=== PATIENT | female | born 1935 | race Caucasian/White ===

== ENCOUNTER 2016-09-05 21:50 | Inpatient (IN) | payer MEDICARE ==
[~2016-09-05] VITALS: Ht 157.5 cm; Wt 69.9 kg
[~2016-09-05 21:50] MED LIST: ACET325T9 PO; ASPI325T4 PO; ATOR40TA PO; CHOL10003 PO; COLE1TAB2 PO; CYAN10005 PO; DIPH25CA3 PO; DONE10TA34 PO; ESCI20TA10 PO; ESTR2TAB PO; GABA-586 PO; GLYB5TAB PO; HYDR-2666 PO; HYDR-2678 PO; LISI-334 PO; LISI40TA PO; MAGN30TA2 PO; MAGN400T22 PO; MEMA10TA PO; METF10002 PO; OMEG10006 PO; OMEP20CA5 PO; OXYB5TAB33 PO; aspirin PO; lexapro PO; lipitor PO; metformin PO; omega 3 fish oil PO; tylenol; vitamin B12; vitamin D3 PO
[2016-09-05] MEDS ORDERED: ONDANSETRON PF 4 MG/2 ML VIAL. IV ONE (22:45)
[2016-09-05] MEDS ORDERED: IV NORMAL SALINE 1000ML BAG 1,000 ML IV SCH (22:45)
--- NOTE | 2016-09-05 22:49 | ED.ADGEN ---
Past Medical History Past Medical History: CVA, Dementia, Depression, Diabetes-Type II, Hypertension , [place] Past Surgical History: Cholecystectomy, Coronary Bypass Surgery, Hysterectomy, Knee Replacement, Pacemaker, Other Additional Past Surgical Histo: bilateral lumpectomy Alcohol Use: None Drug Use: None Adult General Chief Complaint Chief Complaint: Neck Pain HPI HPI Patient is a 81 year old woman, history of hypertension, CVA, type 2 diabetes mellitus, dementia, dysphagia with aspiration, who presents emergency department with multiple complaints. Patient states for the past several days she's been experiencing body aches, headache, neck pain, cough productive of green white sputum, shortness of breath, generalized weakness, abdominal pain, and diarrhea. Patient experiences incontinence of urine and stool at baseline. Has not expressed any focal weakness, any injuries. She did receive her flu vaccination this year. No recent medication changes, patient lives with her family, has been compliant all medications. Patient states that she is willing to be evaluated this time, is concerned that she may have the flu, but does not want to stay. Describes the headache is located in the front of her head at this time, denies any vision changes, is complaining of nausea, and generalized malaise and weakness. No dysuria. No vomiting. Patient noted to be mildly hypoxic per EMS, oxygen saturation of 88% on arrival, placed on 2 L nasal cannula, saturation now 95%. Patient does not use oxygen at baseline. Patient's family voices concern that she may have experienced some aspiration as well, as this is been happening intermittently, the patient denies any specific Review of Systems Review of Systems Constitutional: Denies fever or chills. Generalized malaise and weakness, body aches. Eyes: Denies change in visual acuity. [] HENT: Denies nasal congestion, complaining of sore throat for the past several days. Respiratory: Cough productive of green-yellow sputum, shortness of breath. Cardiovascular: Denies chest pain or edema. [] GI: Suprapubic abdominal pain, nausea, no vomiting, bloody stools, experiencing multiple episodes of loose brown stool. : Denies dysuria. [] Musculoskeletal: Neck pain and back pain. Integument: Denies rash. [] Neurologic: Denies headache, focal weakness or sensory changes. [] Endocrine: Denies polyuria or polydipsia. [] Lymphatic: Denies swollen glands. [] Psychiatric: Denies depression or anxiety. [] Current Medications Current Medications Current Medications Medications (Trade) Dose Ordered Sig/[place] Start Time Stop Time Status Last Admin Dose Admin Diazepam (Valium) 2 mg 1X ONCE 09/06/16 00:00 09/06/16 00:01 DC 09/06/16 00:31 2 MG Fentanyl Citrate 25 mcg 25 mcg PRN Q15MIN PRN 09/05/16 22:45 09/06/16 22:44 09/06/16 01:14 25 MCG Ondansetron HCl (Zofran) 4 mg 1X ONCE 09/05/16 22:45 09/05/16 22:46 DC 09/05/16 22:51 4 MG Sodium Chloride (Iv Sodium Chloride 0.9% 1000ml Bag) 1,000 ml @ 100 mls/hr Q10H 09/05/16 22:45 09/06/16 08:44 09/05/16 22:50 100 MLS/HR Allergies Allergies Allergies Coded Allergies Type Severity Reaction Last Updated Verified Penicillins Allergy Severe SYNCOPE, FINGERNAILS TURN BLACK 01/06/14 Yes Physical Exam Physical Exam Constitutional: Well developed, well nourished, no acute distress, non-toxic appearance. [] Nasal cannula in place. HENT: Normocephalic, atraumatic, bilateral external ears normal, oropharynx moist, no oral exudates, nose normal. [] Eyes: PERRLA, EOMI, conjunctiva normal, no discharge. [] Neck: Normal range of motion, no tenderness, supple, no stridor. [] Cardiovascular:Heart rate regular rhythm, no murmur, S1, S2, no rubs or gallops , soft heart sounds. [] Lungs & Thorax: Diminished breath sounds at bases bilaterally, no rhonchi or rales identified. No wheezing. [] Abdomen: Bowel sounds normal, soft, tenderness to palpation in the suprapubic region, no rebound, rigidity, no guarding,, no masses, no pulsatile masses. [] Skin: Warm, dry, no erythema, no rash. [] Back: Patient has tenderness to palpation throughout the neck, back, midline and paraspinal, no step-offs or deformities identified. Patient plain to pain with any motion, radiating from neck down to her shoulders, and into her back. No external signs of trauma. Extremities: No tenderness, no cyanosis, no clubbing, ROM intact, no edema. [] Neurologic: Alert and oriented X 3, normal motor function, normal sensory function, no focal deficits noted. [] Psychologic: Affect normal, judgement normal, mood normal. [] Current Patient Data Vital Signs Vital Signs Date Time Temp Pulse Resp B/P Pulse Ox O2 Delivery O2 Flow Rate FiO2 09/06/16 00:04 111 16 142/63 95 Room Air 09/05/16 23:34 2 09/05/16 22:22 97.7 97.7 Lab Values Laboratory Tests Test 09/05/16 22:40 09/05/16 22:45 09/05/16 23:15 Influenza Type A Antigen Negative (NEGATIVE) Influenza Type B Antigen Negative (NEGATIVE) Urine Collection Type U cath Urine Color Yellow Urine Clarity Clear Urine pH 5.5 Urine Specific [place] >=1.030 Urine Protein 30mg/dL (NEG-TRACE) Urine Glucose (UA) Negativemg/dL (NEG) Urine Ketones (Stick) Tracemg/dL (NEG) Urine Blood Negative (NEG) Urine Nitrite Negative (NEG) Urine Bilirubin Negative (NEG) Urine Urobilinogen Dipstick 0.2mg/dL (0.2 mg/dL) Urine Leukocyte Esterase Negative (NEG) Urine RBC Occ/HPF (0-2) Urine WBC Occ/HPF (0-4) Urine Squamous Epithelial Cells Occ/LPF Urine Amorphous Sediment Present/HPF Urine Bacteria 0/HPF (0-FEW) Urine Hyaline Casts Few/HPF Urine Mucus Slight/LPF White Blood Count 11.6x10^3/uL (4.0-11.0) H Red Blood Count 4.12x10^6/uL (3.50-5.40) Hemoglobin 11.7g/dL (12.0-15.5) L Hematocrit 36.6% (36.0-47.0) Mean Corpuscular Volume 89fL (79-100) Mean Corpuscular Hemoglobin 29pg (25-35) Mean Corpuscular Hemoglobin Concent 32g/dL (31-37) Red Cell Distribution Width 14.4% (11.5-14.5) Platelet Count 282x10^3/uL (140-400) Neutrophils (%) (Auto) 82% (31-73) H Lymphocytes (%) (Auto) 11% (24-48) L Monocytes (%) (Auto) 6% (0-9) Eosinophils (%) (Auto) 0% (0-3) Basophils (%) (Auto) 1% (0-3) Neutrophils # (Auto) 9.5x10^3uL (1.8-7.7) H Lymphocytes # (Auto) 1.3x10^3/uL (1.0-4.8) Monocytes # (Auto) 0.7x10^3/uL (0.0-1.1) Eosinophils # (Auto) 0.0x10^3/uL (0.0-0.7) Basophils # (Auto) 0.1x10^3/uL (0.0-0.2) Sodium Level 143mmol/L (136-145) Potassium Level 4.0mmol/L (3.5-5.1) Chloride Level 106mmol/L (98-107) Carbon Dioxide Level 25mmol/L (21-32) Anion Gap 12 (6-14) Blood Urea Nitrogen 23mg/dL (7-20) H Creatinine 1.0mg/dL (0.6-1.0) Estimated GFR (Cockcroft-Gault) 53.3 BUN/Creatinine Ratio 23 (6-20) H Glucose Level 132mg/dL (70-99) H Lactic Acid Level 1.5mmol/L (0.4-2.0) Calcium Level 6.9mg/dL (8.5-10.1) L Total Bilirubin 0.3mg/dL (0.2-1.0) Aspartate Amino Transferase (AST) 22U/L (15-37) Alanine Aminotransferase (ALT) 14U/L (14-59) Alkaline Phosphatase 104U/L (46-116) Troponin I Quantitative 0.020ng/mL (0.000-0.055) Total Protein 7.3g/dL (6.4-8.2) Albumin 2.6g/dL (3.4-5.0) L Albumin/Globulin Ratio 0.6 (1.0-1.7) L Laboratory Tests 09/05/16 23:15 Laboratory Tests 09/05/16 23:15 EKG EKG EC: Sinus rhythm, heart rate 93 beats/minute, upright axis, QTC of 4:30, UT 186, QRS of 80, mild and artifact noted, low limb lead voltage noted, no ST elevations or depressions, abnormal ECG, does not meet STEMI criteria. As interpreted by me. [] Radiology/Procedures Radiology/Procedures Chest x-ray: One view: Cardiac silhouette with straightening left heart border, patient with a CD pacemaker in place, mild increased interstitial markings, no discrete infiltrates or effusions, no pneumothorax, no soft tissue or bony abnormalities identified. As interpreted by me. Course & Med Decision Making Course & Med Decision Making Pertinent Labs and Imaging studies reviewed. (See chart for details) Patient with tenderness all patient throughout her neck and back, no nuchal rigidity, though she is tender, states the headache does move of her neck into her head in this region. Afebrile, so sought obtained was negative, although patient's constellation of symptoms are most consistent with a viral etiology. CT of the head obtained due to patient's complaint of headache, which was unremarkable. Patient had a positive jolt accentuation test. Tachycardic as stated, 1 teens to 120s, although when she is agitated tends to go up. Although I believe that this is more consistent with a viral etiology, I did discuss with the patient and family at bedside the fact that she does have headache, with mild leukocytosis, and neck pain, that obtaining a lumbar puncture would be an appropriate diagnostic procedure. Patient states that she's had pain such as this previously, declined a lumbar puncture. She was weaned off oxygen in the emergency department without issue, oxygen saturation in the mid 90s on room air. As stated, I believe the patient's presentation is more consistent with a viral etiology but due to the headache, and neck pain, will cover with broad-spectrum antibiotics time, continue to monitor. Additionally, patient is now informed me that her recently , and she has been struggling, I believe this may be contributing to the symptoms there could be a psychiatric component along with any physiologic etiology. Discussion at bedside with patient and family, patient is DNR/DNI. I did discuss above with Dr. Lemons, her primary care provider, he is agreeable with plan as stated, and also with the concerns that this may be influenced by the patient's recent loss of her , patient was accepted to his service as a full admission to the medical telemetry floor for continued monitoring, symptom management, with plan as above. Bridge orders entered as stated. Dragon Disclaimer Dragon Disclaimer This electronic medical record was generated, in whole or in part, using a voice recognition dictation system. Departure Impression: Primary Impression: Weakness Additional Impressions: Body aches Tachycardia Headache Disposition: ADMITTED INPATIENT Admitting Physician: Yoandy Lemons Condition: IMPROVED Problem Qualifiers WILMA ORTIZ DO Sep 05, 2016 22:49
[2016-09-05] MEDS: FENTANYL PF 100 MCG/2 ML VIAL. IV PRN ×2 (22:52→23:41)
[2016-09-05 22:55] LABS: BILIRUBIN,URINE NEGATIVE (NEG); GLUCOSE,URINE NEGATIVE (NEG); NITRITE,URINE NEGATIVE (NEG); PH,URINE 5.5; PROTEIN,URINE 30 mg/dL (NEG-TRACE); UROBILINOGEN,URINE 0.2 mg/dL (0.2 mg/dL)
[2016-09-05 23:04] LABS: BACTERIA,URINE 0 /HPF (0-FEW); RBC,URINE OCC /HPF (0-2); WBC,URINE OCC /HPF (0-4)
[2016-09-05 23:05] LABS: SQUAMOUS EPITHELIAL CELL,UR OCC /LPF
[2016-09-05 23:22] LABS: OBC FLU VALID
[2016-09-05 23:24] LABS: BASO # 0.1 x10^3/uL (0.0-0.2); BASO % 1 % (0-3); EOS % 0 % (0-3); HEMATOCRIT 36.6 % (36.0-47.0); HEMOGLOBIN 11.7 g/dL (12.0-15.5); LYMPH # 1.3 x10^3/uL (1.0-4.8); LYMPH % 11 % (24-48); MEAN CORPUSCULAR HEMOGLOBIN 29 pg (25-35); MEAN CORPUSCULAR HGB CONC 32 g/dL (31-37); MEAN CORPUSCULAR VOLUME 89 fL (79-100); MONO % 6 % (0-9); NEUT % 82 % (31-73); PLATELET COUNT 282 x10^3/uL (140-400); RED BLOOD COUNT 4.12 x10^6/uL (3.50-5.40); RED CELL DISTRIBUTION WIDTH 14.4 % (11.5-14.5); WHITE BLOOD COUNT 11.6 x10^3/uL (4.0-11.0)
[2016-09-05 23:38] LABS: CALCIUM 6.9 mg/dL (8.5-10.1); GFR 53.3
[2016-09-05 23:44] LABS: ALBUMIN 2.6 g/dL (3.4-5.0); ALBUMIN/GLOBULIN RATIO 0.6 (1.0-1.7); TOTAL BILIRUBIN 0.3 mg/dL (0.2-1.0); TOTAL PROTEIN 7.3 g/dL (6.4-8.2)
[2016-09-06] VITALS (7 sets, daily range): BP systolic 91–140; BP diastolic 30–67
[2016-09-06] MEDS ORDERED: DIAZEPAM 10 MG/2 ML DISP.SYRIN. IV ONE
--- NOTE | 2016-09-06 00:10 | RAD ---
PROCEDURE CT head without contrast dated 09/05/2016. HISTORY Severe headache today. Flu-like symptoms. TECHNIQUE Contiguous axial imaging of the head was performed from skull base to vertex. No contrast administered.Exposure: One or more of the following individualized dose reduction techniques were utilized for this exam: 1. Automated exposure control. 2. Adjustment of the mA and/or kV according to patient size. 3. Use of iterative reconstruction technique. COMPARISON 10/08/2014. FINDINGS Ventricles and sulci are moderately prominent for age, stable from prior study. No midline shift or mass effect. Moderate patchy low density in the deep/subcortical periventricular white matter, unchanged. No hemorrhage or extra-axial collection. Posterior fossa and brainstem unremarkable. Visualized paranasal sinuses and mastoid air cells are clear. No acute calvarial abnormality. IMPRESSION - No evidence of acute intracranial hemorrhage or mass. - Moderate chronic small vessel ischemic changes and atrophy, similar to prior study. Electronically signed by: Carroll Harding (Sep 06, 2016 00:09:15)
[2016-09-06] MEDS ORDERED: ONDANSETRON PF 4 MG/2 ML VIAL. IV PRN ×2 (01:00→07:15)
[2016-09-06] MEDS ORDERED: ACETAMINOPHEN 325 MG TABLET. PO PRN ×2 (01:00→07:15)
[2016-09-06] MEDS ORDERED: CEFTRIAXONE SODIUM 2 GM in IV NORMAL SALINE 100ML 100 ML IV SCH (01:00)
[2016-09-06] MEDS: FENTANYL PF 100 MCG/2 ML VIAL. IV PRN ×3 (01:14→05:46)
[2016-09-06] MEDS ORDERED: VANCOMYCIN PER PHARMACY MC PRN (02:00)
[2016-09-06] MEDS ORDERED: VANCOMYCIN 1.75 GM in IV NORMAL SALINE 500ML BAG 500 ML IV ONE (02:00)
--- NOTE | 2016-09-06 06:39 | EKG ---
[facility] [address] [place] [address] Test Date: 2016-09-05 Test Time: 22:00:07 Pat Name: SHONNA CHAMPAGNE Department: Room: Gender: F Load Planner: : 1935 Requested By: WILMA ORTIZ Order Number: [id number] Reading MD: Measurements Intervals Cut Off Rate: 93 P: 90 TX: 186 QRS: 63 QRSD: 80 T: 42 QT: 344 QTc: 430 Interpretive Statements SINUS RHYTHM LOW LIMB LEAD VOLTAGE RI6.01 Unconfirmed report No previous ECG available for comparison
[2016-09-06] MEDS ORDERED: BUSP5TAB PO (06:50)
[2016-09-06] MEDS ORDERED: ASCO500T2 PO (06:50)
[2016-09-06] MEDS ORDERED: VENL37.57 PO (06:50)
[2016-09-06] MEDS ORDERED: METF100010 PO (06:50)
[2016-09-06] MEDS ORDERED: ALPR0.25 PO (06:50)
[2016-09-06] MEDS ORDERED: ALPRAZOLAM 0.25 MG TABLET PO PRN (07:15)
[2016-09-06] MEDS ORDERED: HYDROCODONE/APAP 5/325MG TABLET. PO PRN (07:15)
[2016-09-06] MEDS ORDERED: busPIRone 5 MG TABLET. PO PRN (07:15)
[2016-09-06] MEDS ORDERED: AZITHROMYCIN 250 MG TABLET PO ONE (07:15)
--- NOTE | 2016-09-06 07:25 | RAD ---
Portable chest, 09/05/2016: History: Cough, hypoxia Comparison is made to a study from 10/12/2014. A left-sided transvenous pacemaker remains in place with 2 leads extending into the right heart. There are surgical clips projected over the left hilar region. The heart size is normal. There is calcific plaquing of the aorta. The pulmonary vascularity is normal. No pulmonary infiltrates are seen. There is no evidence of pleural fluid. IMPRESSION: No acute cardiopulmonary abnormality is detected.
[2016-09-06] MEDS ORDERED: GUAIFENESIN DM 200MG/20MG 10 ML SYRUP. PO PRN (07:45)
[2016-09-06] MEDS ORDERED: ALBUTEROL SULFATE 2.5 MG/3 ML NEBU. NEB PRN (07:45)
--- NOTE | 2016-09-06 07:48 | PDOC ---
Provider Note Provider Note See admission H&P dictation #[id number] Impression: 1. Viral syndrome with dehydration: 2. Myalgias secondary to the above: 3. Dehydration: 4. Bronchitis: 5. Diabetes mellitus type 2: 6. Hypertension: 7. Dementia: 8. Grief secondary to the loss of her a couple of weeks ago: 9. Anxiety: NADJA GARZA MD Sep 06, 2016 07:48
[2016-09-06] MEDS: HYDROCODONE/APAP 5/325MG TABLET. PO PRN (09:07)
[2016-09-06] MEDS: PANTOPRAZOLE 40 MG TABLET. PO SCH (09:07)
[2016-09-06] MEDS: IBUPROFEN 400 MG TABLET. PO SCH ×3 (09:07→20:45)
[2016-09-06] MEDS: LISINOPRIL 20 MG TABLET PO SCH (09:08)
[2016-09-06] MEDS: ASPIRIN 325 MG TABLET PO SCH (09:08)
[2016-09-06] MEDS: DONEPEZIL HCL 10 MG TABLET. PO SCH (09:08)
[2016-09-06] MEDS: METFORMIN XR 500 MG TAB.ER.24H PO SCH ×2 (09:08→20:45)
[2016-09-06] MEDS: MEMANTINE 5 MG TABLET. PO SCH (09:09)
--- NOTE | 2016-09-06 09:48 | RAD ---
Portable abdomen, 09/06/2016: History: Abdominal pain Supine views of the abdomen were obtained. Gas is present in large and small bowel without evidence of significant bowel distention. There is no evidence of organomegaly. Surgical clips are present bilaterally. Moderate scattered arterial calcifications are present. Moderate degenerative change is present in the lumbar spine. IMPRESSION: No acute abdominal abnormality is detected.
[2016-09-06] MEDS: IV NORMAL SALINE 1000ML BAG 1,000 ML IV SCH ×2 (12:00→21:30)
[2016-09-06] MEDS: ALPRAZOLAM 0.25 MG TABLET PO SCH (15:01)
[2016-09-07] MEDS ORDERED: VANCOMYCIN 1 GM in IV NORMAL SALINE 250ML 250 ML IV SCH (02:00)
[2016-09-07 03:00] VITALS: BP 110/60
[2016-09-07] MEDS: IV NORMAL SALINE 1000ML BAG 1,000 ML IV SCH ×2 (03:15→17:28)
[2016-09-07 04:52] LABS: BASO # 0.1 x10^3/uL (0.0-0.2); BASO % 1 % (0-3); EOS % 0 % (0-3); HEMATOCRIT 30.5 % (36.0-47.0); HEMOGLOBIN 10.1 g/dL (12.0-15.5); LYMPH # 2.4 x10^3/uL (1.0-4.8); LYMPH % 24 % (24-48); MEAN CORPUSCULAR HEMOGLOBIN 29 pg (25-35); MEAN CORPUSCULAR HGB CONC 33 g/dL (31-37); MEAN CORPUSCULAR VOLUME 89 fL (79-100); MONO % 11 % (0-9); NEUT % 64 % (31-73); PLATELET COUNT 232 x10^3/uL (140-400); RED BLOOD COUNT 3.45 x10^6/uL (3.50-5.40); RED CELL DISTRIBUTION WIDTH 14.3 % (11.5-14.5)
[2016-09-07 05:28] LABS: CALCIUM 6.2 mg/dL (8.5-10.1); CREATININE 0.9 mg/dL (0.6-1.0); GFR 60.2; POTASSIUM 3.3 mmol/L (3.5-5.1)
[2016-09-07 07:00] VITALS: BP 121/46
[2016-09-07] MEDS: LISINOPRIL 20 MG TABLET PO SCH (09:00)
[2016-09-07] MEDS: PANTOPRAZOLE 40 MG TABLET. PO SCH (09:00)
[2016-09-07] MEDS: AZITHROMYCIN 250 MG TABLET PO SCH (09:00)
[2016-09-07] MEDS: IBUPROFEN 400 MG TABLET. PO SCH ×3 (09:01→20:37)
[2016-09-07] MEDS: ASPIRIN 325 MG TABLET PO SCH (09:01)
[2016-09-07] MEDS: METFORMIN XR 500 MG TAB.ER.24H PO SCH ×2 (09:01→20:38)
[2016-09-07] MEDS: HYDROCODONE/APAP 5/325MG TABLET. PO PRN ×2 (09:01→17:27)
[2016-09-07] MEDS: DONEPEZIL HCL 10 MG TABLET. PO SCH (09:01)
[2016-09-07] MEDS: MEMANTINE 5 MG TABLET. PO SCH (09:01)
--- NOTE | 2016-09-07 09:17 | PDOC ---
SUBJECTIVE Subjective Pt confused this morning; believes that she has been in the hospital for 4 days. Still having diarrhea. Still feeling weak. Discussed possible discharge options; pt stated initially that she wanted to go home, but agrees that being in her home alone is not a very safe option. She says that her nephew has discussed helping take care of her and having her live with them. OBJECTIVE Vital Signs Vital Signs Date Time Temp Pulse Resp B/P Pulse Ox O2 Delivery O2 Flow Rate FiO2 09/07/16 09:01 97 Room Air 2.0 09/07/16 09:00 109 121/46 09/07/16 07:00 98.4 109 20 121/46 97 Room Air 98.4 09/07/16 03:00 98.1 81 17 110/60 98 Room Air 98.1 09/06/16 23:00 98.2 87 17 111/61 99 Room Air 98.2 09/06/16 20:00 Room Air 09/06/16 19:00 98.1 75 18 91/30 95 Room Air 98.1 09/06/16 15:00 98.0 72 18 117/51 95 Room Air 98.0 09/06/16 11:00 98.1 80 20 126/61 95 Room Air 98.1 09/06/16 10:07 Room Air 09/06/16 09:08 103 138/59 I & O Intake and Output 09/07/16 07:00 Intake Total 750 ml Balance 750 ml Intake Oral 750 ml # Voids 5 # Bowel Movements 2 PHYSICAL EXAM Physical Exam GEN: NAD, slightly confused, oriented to person and place, not time HEENT: MMM, EOMI, no scleral icterus/injection Cardiac: RRR, no M/R/G Lungs: CTAB, regular breathing rate and effort Abd: soft, non distended, NTTP Ext: no erythema/edema LE bilaterally Nuero: CN2-12 GI ASSESSMENT/PLAN Assessment/Plan Pt is a 81yo CF admitted for weakness 1)Weakness- likely chronic, progressive and recently worsened by the of her . Pt is not safe to live at home alone. PT/OT has been consulted, as has social media content specialist. 2)Diarrhea- C diff and stool cultures ordered 3)Bronchitis- pt started on Azithromycin. Had initial elevation in WBC that has resolved, afebrile. 4)Anemia- slightly worsened likely 2/2 dilution. Pt is not having any active bleeding. CTM 5)Hypernatremia- likely 2/2 dehydration. Pt receiving IVF 6)Hypokalemia- will replace and recheck tomorrow 7)HTN- pt's blood pressure is normo to hypotensive. Currently receiving Lisinopril 20mg. Already receiving AM dose, will hold for tomorrow. 8)Dementia- do not believe it is safe for pt to live alone. Pt continued on Namenda 5mg and Aricept 10mg 9)DM2- well controlled. HbA1C 03/15 was 5.1. Continue Metformin 10)Anxiety/Depression/Grief- pt continued on Xanax 11)Chronic pain- pt has Lortab available Problems: COMMENT Lab Laboratory Tests Test 09/06/16 11:58 09/06/16 16:56 09/06/16 21:03 09/07/16 04:15 Glucose (Fingerstick) 141mg/dL (70-99) 109mg/dL (70-99) 118mg/dL (70-99) White Blood Count 10.0x10^3/uL (4.0-11.0) Red Blood Count 3.45x10^6/uL (3.50-5.40) Hemoglobin 10.1g/dL (12.0-15.5) Hematocrit 30.5% (36.0-47.0) Mean Corpuscular Volume 89fL (79-100) Mean Corpuscular Hemoglobin 29pg (25-35) Mean Corpuscular Hemoglobin Concent 33g/dL (31-37) Red Cell Distribution Width 14.3% (11.5-14.5) Platelet Count 232x10^3/uL (140-400) Neutrophils (%) (Auto) 64% (31-73) Lymphocytes (%) (Auto) 24% (24-48) Monocytes (%) (Auto) 11% (0-9) Eosinophils (%) (Auto) 0% (0-3) Basophils (%) (Auto) 1% (0-3) Neutrophils # (Auto) 6.4x10^3uL (1.8-7.7) Lymphocytes # (Auto) 2.4x10^3/uL (1.0-4.8) Monocytes # (Auto) 1.1x10^3/uL (0.0-1.1) Eosinophils # (Auto) 0.0x10^3/uL (0.0-0.7) Basophils # (Auto) 0.1x10^3/uL (0.0-0.2) Sodium Level 147mmol/L (136-145) Potassium Level 3.3mmol/L (3.5-5.1) Chloride Level 111mmol/L (98-107) Carbon Dioxide Level 25mmol/L (21-32) Anion Gap 11 (6-14) Blood Urea Nitrogen 17mg/dL (7-20) Creatinine 0.9mg/dL (0.6-1.0) Estimated GFR (Cockcroft-Gault) 60.2 Glucose Level 82mg/dL (70-99) Calcium Level 6.2mg/dL (8.5-10.1) Test 09/07/16 07:59 Glucose (Fingerstick) 73mg/dL (70-99) SAHIL BYRNE MD Sep 07, 2016 09:17
[2016-09-07] MEDS ORDERED: POTASSIUM CHLORIDE 20 MEQ TABLET.ER. PO ONE (09:30)
[2016-09-07 11:00] VITALS: BP 122/42
[2016-09-07 15:00] VITALS: BP 127/35
[2016-09-07 19:00] VITALS: BP 108/45
[2016-09-07] MEDS: ALPRAZOLAM 0.25 MG TABLET PO SCH (20:37)
[2016-09-07 22:58] VITALS: BP 110/60
[2016-09-08 03:00] VITALS: BP 110/71
[2016-09-08] MEDS: IV NORMAL SALINE 1000ML BAG 1,000 ML IV SCH ×2 (04:42→09:15)
[2016-09-08] MEDS: HYDROCODONE/APAP 5/325MG TABLET. PO PRN (04:42)
[2016-09-08 07:00] VITALS: BP 143/58
[2016-09-08 07:02] LABS: BASO # 0.1 x10^3/uL (0.0-0.2); BASO % 1 % (0-3); EOS % 1 % (0-3); HEMATOCRIT 27.4 % (36.0-47.0); LYMPH # 1.8 x10^3/uL (1.0-4.8); LYMPH % 25 % (24-48); MEAN CORPUSCULAR HEMOGLOBIN 29 pg (25-35); MEAN CORPUSCULAR HGB CONC 33 g/dL (31-37); MEAN CORPUSCULAR VOLUME 88 fL (79-100); MONO % 8 % (0-9); NEUT % 66 % (31-73); PLATELET COUNT 226 x10^3/uL (140-400); RED CELL DISTRIBUTION WIDTH 14.7 % (11.5-14.5); WHITE BLOOD COUNT 7.4 x10^3/uL (4.0-11.0)
[2016-09-08 07:06] LABS: CREATININE 0.8 mg/dL (0.6-1.0); POTASSIUM 3.5 mmol/L (3.5-5.1)
[2016-09-08 07:13] LABS: CALCIUM 5.9 mg/dL (8.5-10.1)
[2016-09-08] MEDS: PANTOPRAZOLE 40 MG TABLET. PO SCH (07:43)
[2016-09-08] MEDS: DONEPEZIL HCL 10 MG TABLET. PO SCH (09:05)
[2016-09-08] MEDS: IBUPROFEN 400 MG TABLET. PO SCH ×3 (09:05→20:18)
[2016-09-08] MEDS: ASPIRIN 325 MG TABLET PO SCH (09:05)
[2016-09-08] MEDS: METFORMIN XR 500 MG TAB.ER.24H PO SCH ×2 (09:05→17:34)
[2016-09-08] MEDS: AZITHROMYCIN 250 MG TABLET PO SCH (09:05)
[2016-09-08] MEDS: MEMANTINE 5 MG TABLET. PO SCH (09:05)
[2016-09-08] MEDS ORDERED: LOPERAMIDE 2 MG CAPSULE PO PRN (09:30)
--- NOTE | 2016-09-08 09:33 | PDOC ---
SUBJECTIVE Subjective Pt is feeling much better this morning. She is more alert and oriented. She is still having diarrhea. Still feels weak. States that she is interested in going to SNF on discharge. OBJECTIVE Vital Signs Vital Signs Date Time Temp Pulse Resp B/P Pulse Ox O2 Delivery O2 Flow Rate FiO2 09/08/16 07:56 Room Air 09/08/16 07:00 97.7 84 18 143/58 95 Room Air 97.7 09/08/16 03:00 97.9 69 18 110/71 98 Room Air 97.9 09/07/16 22:58 97.7 67 18 110/60 99 Room Air 97.7 09/07/16 20:10 Room Air 09/07/16 19:00 97.7 18 18 108/45 95 Room Air 97.7 09/07/16 18:24 96 Room Air 2.0 09/07/16 17:27 96 Room Air 2.0 09/07/16 15:00 97.1 64 18 127/35 96 Room Air 97.1 09/07/16 11:00 98.8 78 20 122/42 94 Room Air 98.8 I & O Intake and Output 09/08/16 07:00 Intake Total 600 ml Output Total 200 ml Balance 400 ml Intake Oral 600 ml Output Urine Total 200 ml # Voids 4 # Bowel Movements 4 PHYSICAL EXAM Physical Exam GEN: NAD, AOx3, tremor present HEENT: MMM, EOMI, no scleral icterus/injection Cardiac: RRR, no M/R/G Lungs: CTAB, regular breathing rate and effort Abd: soft, non distended, NTTP Ext: no erythema/edema LE bilaterally Nuero: CN2-12 GI ASSESSMENT/PLAN Assessment/Plan Pt is a 81yo CF admitted for weakness 1)Weakness- chronic. Pt found to have hypocalcemia which could be contributing , and decreasing Hb. Pt states that she has had a 50 pound weight loss over the past year and has had recent GI workup. She is interested in SNF placement on discharge. PT/OT has been consulted, as has social work specialist. 2)Diarrhea- C diff and stool cultures ordered 3)Bronchitis- pt started on Azithromycin. Had initial elevation in WBC that has resolved, afebrile. 4)Anemia- continuing to decrease, currently 9. No active bleeding, contribution from dilution. FOBT pending. Will stop IVF hydration as pt is clinically improving. CTM 5)Hypernatremia- likely 2/2 dehydration, improving 6)Hypokalemia- resolved 7)HTN- pt was initially hypotensive so Lisinopril was held, will resume today. 8)Dementia- do not believe it is safe for pt to live alone. Pt continued on Namenda 5mg and Aricept 10mg 9)DM2- well controlled. HbA1C 03/15 was 5.1. Continue Metformin 10)Anxiety/Depression/Grief- pt continued on Xanax 11)Chronic pain- pt has Lortab available 12)Hypocalcemia- PTH, Mg, and Phos labs pending. Pt started on Calcium orally Problems: COMMENT Lab Laboratory Tests Test 09/07/16 11:39 09/07/16 16:51 09/07/16 20:38 09/08/16 06:30 Glucose (Fingerstick) 100mg/dL (70-99) 112mg/dL (70-99) 117mg/dL (70-99) White Blood Count 7.4x10^3/uL (4.0-11.0) Red Blood Count 3.10x10^6/uL (3.50-5.40) Hemoglobin 9.0g/dL (12.0-15.5) Hematocrit 27.4% (36.0-47.0) Mean Corpuscular Volume 88fL (79-100) Mean Corpuscular Hemoglobin 29pg (25-35) Mean Corpuscular Hemoglobin Concent 33g/dL (31-37) Red Cell Distribution Width 14.7% (11.5-14.5) Platelet Count 226x10^3/uL (140-400) Neutrophils (%) (Auto) 66% (31-73) Lymphocytes (%) (Auto) 25% (24-48) Monocytes (%) (Auto) 8% (0-9) Eosinophils (%) (Auto) 1% (0-3) Basophils (%) (Auto) 1% (0-3) Neutrophils # (Auto) 4.8x10^3uL (1.8-7.7) Lymphocytes # (Auto) 1.8x10^3/uL (1.0-4.8) Monocytes # (Auto) 0.6x10^3/uL (0.0-1.1) Eosinophils # (Auto) 0.1x10^3/uL (0.0-0.7) Basophils # (Auto) 0.1x10^3/uL (0.0-0.2) Sodium Level 146mmol/L (136-145) Potassium Level 3.5mmol/L (3.5-5.1) Chloride Level 114mmol/L (98-107) Carbon Dioxide Level 21mmol/L (21-32) Anion Gap 11 (6-14) Blood Urea Nitrogen 14mg/dL (7-20) Creatinine 0.8mg/dL (0.6-1.0) Estimated GFR (Cockcroft-Gault) 69.0 Glucose Level 87mg/dL (70-99) Calcium Level 5.9mg/dL (8.5-10.1) Test 09/08/16 07:44 Glucose (Fingerstick) 86mg/dL (70-99) SAHIL BYRNE MD Sep 08, 2016 09:33
[2016-09-08 11:00] VITALS: BP 131/41
[2016-09-08 11:00] LABS: MAGNESIUM 0.3 mg/dL (1.8-2.4); PHOSPHORUS 3.3 mg/dL (2.6-4.7)
[2016-09-08] MEDS: CALCIUM CARBONATE 500 MG TABLET PO SCH ×2 (12:41→17:31)
[2016-09-08] MEDS: LISINOPRIL 20 MG TABLET PO SCH (12:41)
[2016-09-08 15:00] VITALS: BP 124/46
[2016-09-08 19:54] VITALS: BP 128/44
[2016-09-08] MEDS: ALPRAZOLAM 0.25 MG TABLET PO SCH (20:17)
[2016-09-08 23:41] VITALS: BP 115/46
[2016-09-09 03:55] VITALS: BP 122/46
[2016-09-09 05:03] LABS: CALCIUM 6.1 mg/dL (8.5-10.1); CREATININE 0.9 mg/dL (0.6-1.0); GFR 60.2; POTASSIUM 3.2 mmol/L (3.5-5.1)
[2016-09-09 07:52] VITALS: BP 136/52
[2016-09-09] MEDS ORDERED: POTASSIUM CHLORIDE 20 MEQ TABLET.ER. PO ONE (08:15)
[2016-09-09] MEDS ORDERED: CHOLESTYRAMINE/ASPARTAME 4 GM PACKET PO PRN (08:15)
[2016-09-09] MEDS: ASPIRIN 325 MG TABLET PO SCH (08:24)
[2016-09-09] MEDS: PANTOPRAZOLE 40 MG TABLET. PO SCH (08:25)
[2016-09-09] MEDS: LISINOPRIL 20 MG TABLET PO SCH (08:25)
[2016-09-09] MEDS: CALCIUM CARBONATE 500 MG TABLET PO SCH ×3 (08:25→18:32)
--- NOTE | 2016-09-09 08:26 | PDOC ---
SUBJECTIVE Subjective Legs are weak. No shortness of breath or cough. Wants to get stronger so she can get home. Still somewhat achy. OBJECTIVE Vital Signs Vital Signs Date Time Temp Pulse Resp B/P Pulse Ox O2 Delivery O2 Flow Rate FiO2 09/09/16 03:55 97.7 60 18 122/46 96 Room Air 97.7 09/08/16 23:41 97.7 67 18 115/46 96 Room Air 97.7 09/08/16 20:20 Room Air 09/08/16 19:54 63 20 128/44 98 Room Air 09/08/16 15:00 96.1 66 18 124/46 97 Room Air 96.1 09/08/16 12:41 68 131/41 09/08/16 11:00 96.3 68 18 131/41 97 Room Air 96.3 I & O Intake and Output 09/09/16 07:00 Intake Total 930 ml Output Total 200 ml Balance 730 ml Intake Oral 930 ml Output Urine Total 200 ml # Voids 7 # Bowel Movements 4 PHYSICAL EXAM Physical Exam General: No acute distress. Laying in bed. Mental status: Alert and much more interactive Chest: Air movement: good. Auscultation: clear throughout Cardiovascular: Rate: normal. Rhythm: regular. Murmur: none. Abdomen: Bowel sounds: normal. Soft. Nondistended. Tenderness: nontender to palpation. No guarding. No rebound. Extremities: No lower extremity edema. ASSESSMENT/PLAN Assessment/Plan 1)Weakness- chronic. Pt found to have hypocalcemia which could be contributing , and decreasing Hb. Pt states that she has had a 50 pound weight loss over the past year and has had recent GI workup. She is interested in SNF placement on discharge. PT/OT has been consulted, as has social work lecturer. Plan for probable [facility] tomorrow. 2)Diarrhea- C diff and stool cultures ordered. Questran twice a day when necessary for diarrhea. Check TSH. 3)Bronchitis- pt started on Azithromycin. Had initial elevation in WBC that has resolved, afebrile. Appears to be improved. Finish course of antibiotics. 4)Anemia-stabilizing. No active bleeding, contribution from dilution. FOBT pending. Continue to monitor. 5)Hypernatremia- likely 2/2 dehydration, improved. Monitor. 6)Hypokalemia, hypomagnesemia-low again. Replace by IV and orally. Recheck in the morning. 7)HTN- pt was initially hypotensive. Monitor and adjust medications. 8)Dementia- do not believe it is safe for pt to live alone. Pt continued on Namenda 5mg and Aricept 10mg 9)DM2- well controlled. HbA1C 03/15 was 5.1. Continue Metformin 10)Anxiety/Depression/Grief- pt continued on Xanax. 11)Chronic pain- pt has Lortab available 12)Hypocalcemia-PTH pending. Check ionized calcium, vitamin D. Initially looks like it corrected after taking into account hypoalbuminemia. Pt started on Calcium orally 13. Disposition: Plan for [facility], tomorrow. Problems: COMMENT Lab Laboratory Tests Test 09/08/16 11:42 09/08/16 16:28 09/08/16 21:14 09/09/16 03:34 Glucose (Fingerstick) 111mg/dL (70-99) 83mg/dL (70-99) 111mg/dL (70-99) Hemoglobin 9.2g/dL (12.0-15.5) Sodium Level 148mmol/L (136-145) Potassium Level 3.2mmol/L (3.5-5.1) Chloride Level 115mmol/L (98-107) Carbon Dioxide Level 23mmol/L (21-32) Anion Gap 10 (6-14) Blood Urea Nitrogen 11mg/dL (7-20) Creatinine 0.9mg/dL (0.6-1.0) Estimated GFR (Cockcroft-Gault) 60.2 Glucose Level 76mg/dL (70-99) Calcium Level 6.1mg/dL (8.5-10.1) Test 09/09/16 08:02 Glucose (Fingerstick) 74mg/dL (70-99) NADJA GARZA MD Sep 09, 2016 08:25
[2016-09-09] MEDS: AZITHROMYCIN 250 MG TABLET PO SCH (08:27)
[2016-09-09] MEDS: DONEPEZIL HCL 10 MG TABLET. PO SCH (08:27)
[2016-09-09] MEDS: MEMANTINE 5 MG TABLET. PO SCH (08:27)
[2016-09-09] MEDS: IBUPROFEN 400 MG TABLET. PO SCH ×3 (08:27→20:25)
[2016-09-09] MEDS: METFORMIN XR 500 MG TAB.ER.24H PO SCH ×2 (08:36→20:25)
[2016-09-09] MEDS ORDERED: MAGNESIUM SULFATE 2GM 50 ML IV ONE (09:00)
[2016-09-09 11:21] VITALS: BP 148/50
--- NOTE | 2016-09-09 12:23 | PDOC ---
MICHAEL SCOTT [employer] 09/09/16 1223: CARDIO Progress Notes Date and Time Date of Service 09/09/16 Time of Evaluation 1135 Subjective Subjective: No Chest Pain, No shortness of breath, Other (weak, recently passed. ) Vitals Vitals Vital Signs Date Time Temp Pulse Resp B/P Pulse Ox O2 Delivery O2 Flow Rate FiO2 09/09/16 11:21 97.9 67 18 148/50 98 Room Air 97.9 Weight Weight [ ] Input and Output Intake and Output Intake and Output 09/09/16 07:00 Intake Total 930 ml Output Total 200 ml Balance 730 ml Intake Oral 930 ml Output Urine Total 200 ml # Voids 7 # Bowel Movements 4 Laboratory Labs Laboratory Tests Test 09/08/16 16:28 09/08/16 21:14 09/09/16 03:34 09/09/16 08:02 Glucose (Fingerstick) 83mg/dL (70-99) 111mg/dL (70-99) 74mg/dL (70-99) Hemoglobin 9.2g/dL (12.0-15.5) Sodium Level 148mmol/L (136-145) Potassium Level 3.2mmol/L (3.5-5.1) Chloride Level 115mmol/L (98-107) Carbon Dioxide Level 23mmol/L (21-32) Anion Gap 10 (6-14) Blood Urea Nitrogen 11mg/dL (7-20) Creatinine 0.9mg/dL (0.6-1.0) Estimated GFR (Cockcroft-Gault) 60.2 Glucose Level 76mg/dL (70-99) Calcium Level 6.1mg/dL (8.5-10.1) Test 09/09/16 11:48 Glucose (Fingerstick) 85mg/dL (70-99) Physical Exam HEENT: Neck Supple W Full Motion Chest: Symmetric LUNGS: Clear to Auscultation Heart: S1S2, RRR, other (tele: SR with int AV pacing) Abdomen: Soft N/T Extremities: 2+ Dorsalis Pedis, No Calf Tenderness, Other (trace LE dependent edema ) Neurology: alert, oriented, follow commands, confused Assessment Assessment 1. ? Rhythm abnormalities 2. Weakness/dehydration 3. Electrolyte abnormalities 4. Carotid hypersensitivity s/p Biotronik PPM 5. CAD s/p CABG 2011 6. Hypertension 7. Hyperlipidemia 8. Diabetes 9. Dementia Recommendations Re-check Mg. Replace lytes as warranted Interrogate Biotronik device. Continue supportive care DARCI GORE MD 09/09/16 1821: CARDIO Progress Notes Plan Plan Patient seen and examined. Agree with above nurse practitioner note. no events overnight. Normal cardiac examination. Labs and medications reviewed. Supportive care from a cardiac standpoint. If no significant abnormalities noted on pacemaker interrogation will defer to PCP with regards to evaluation of her weight loss and electrolyte disturbances. We will follow along peripherally. MICHAEL SCOTT APRN Sep 09, 2016 12:23 DARCI GORE MD Sep 09, 2016 18:21
[2016-09-09 15:23] VITALS: BP 123/51
[2016-09-09 18:10] LABS: PTH INTACT 29 pg/mL (15-65)
[2016-09-09 19:55] VITALS: BP_SYST 127
[2016-09-09] MEDS: ALPRAZOLAM 0.25 MG TABLET PO SCH (20:24)
[2016-09-09 23:41] VITALS: BP 107/71
[2016-09-10 05:46] LABS: ALBUMIN 1.9 g/dL (3.4-5.0); ALBUMIN/GLOBULIN RATIO 0.5 (1.0-1.7); CALCIUM 6.2 mg/dL (8.5-10.1); CREATININE 0.8 mg/dL (0.6-1.0); MAGNESIUM 0.7 mg/dL (1.8-2.4); POTASSIUM 3.8 mmol/L (3.5-5.1); TOTAL BILIRUBIN 0.2 mg/dL (0.2-1.0); TOTAL PROTEIN 5.4 g/dL (6.4-8.2)
[2016-09-10 07:33] VITALS: BP 143/56
--- NOTE | 2016-09-10 07:52 | DISCH ---
DISCHARGE DISCHARGE DATE: Sep 10, 2016 FINAL DIAGNOSIS Viral syndrome with dehydration Electrolyte disturbance Debilitation Grief Problems Medical Problems: (1) Body aches Status: Acute (2) Headache Status: Acute (3) Tachycardia Status: Acute (4) Weakness Status: Acute CONDITION ON DISCHARGE: Stable SNF STAY <30 DAYS: Yes POST DISCHARGE ORDERS ACTIVITY ORDERS: Activity as tolerated WEIGHT BEARING STATUS: No restrictions DIET AFTER DISCHARGE: ADA CHECKS AFTER DISCHARGE CHECKS AFTER DISCHARGE: Check blood press - daily, Check blood sugar, ac/hs FOLLOW-UP PHYSICIAN FOLLOW-UP: Dr Garza after discharge LAB ORDERS FOR FOLLOW-UP: CMP, Magnesium level 09/12/16 NADJA GARZA MD Sep 10, 2016 07:52
[2016-09-10] MEDS ORDERED: MAGNESIUM SULFATE 2GM 50 ML IV ONE (08:00)
--- NOTE | 2016-09-10 08:36 | PDOC ---
SUBJECTIVE Subjective Still feels weak in her legs. Breathing is doing better. Minimal cough. She is having some frequent urination. No dysuria. Bowel movements are doing somewhat better. OBJECTIVE Vital Signs Vital Signs Date Time Temp Pulse Resp B/P Pulse Ox O2 Delivery O2 Flow Rate FiO2 09/10/16 07:33 97.1 65 20 143/56 97 Room Air 97.1 09/10/16 03:07 20 Room Air 09/09/16 23:41 97.5 78 20 107/71 96 Room Air 97.5 09/09/16 20:00 Room Air 09/09/16 19:55 74 20 127/ 97 Room Air 09/09/16 15:23 97.4 81 18 123/51 96 Room Air 97.4 09/09/16 11:21 97.9 67 18 148/50 98 Room Air 97.9 09/09/16 09:26 20 Room Air I & O Intake and Output 09/10/16 07:00 Intake Total 620 ml Balance 620 ml Intake Oral 620 ml # Voids 7 # Bowel Movements 1 PHYSICAL EXAM Physical Exam General: No acute distress. Laying in bed. Mental status: Alert and appears at baseline. She appears capable of making her own decisions appropriately. Chest: Air movement: good anteriorly. Auscultation: clear throughout Cardiovascular: Rate: normal. Rhythm: regular. Murmur: none. Abdomen: Bowel sounds: normal. Soft. Nondistended. Tenderness: nontender to palpation. No guarding. No rebound. Extremities: No lower extremity edema. ASSESSMENT/PLAN Assessment/Plan 1)Weakness- chronic. Pt found to have hypocalcemia, low magnesium which could be contributing, and decreasing Hb. Pt states that she has had a 50 pound weight loss over the past year and has had recent GI workup. She is interested in SNF placement on discharge. PT/OT has been consulted, as has social services manager. [facility] today 2)Diarrhea- C diff and stool cultures ordered and still pending but symptoms appear to be improving.. Questran twice a day when necessary for diarrhea. TSH minimally low. 3)Bronchitis- improved. Pt started on Azithromycin which she will finish today. Had initial elevation in WBC that has resolved, afebrile. 4)Anemia-stabilizing. No active bleeding, contribution from dilution. FOBT pending. Continue to monitor. 5)Hypernatremia- likely 2/2 dehydration, improved. Monitor. 6)Hypokalemia, hypomagnesemia-low again. Replace by IV and orally. Monitor at [facility]. 7)HTN-improved with fluids. Monitor and adjust medications. 8)Dementia-she does have some memory issues but she does appear to be making appropriate decisions. Pt continued on Namenda 5mg and Aricept 10mg 9)DM2- well controlled. HbA1C 03/15 was 5.1. Continue Metformin 10)Anxiety/Depression/Grief- pt continued on Xanax. 11)Chronic pain- pt has Lortab available 12)Hypocalcemia-PTH normal. Calcium low. Probably hypoalbuminemia contributing. Pt started on Calcium orally. Continue to monitor. 13. Disposition: Plan for [facility] later today. Problems: COMMENT Lab Laboratory Tests Test 09/09/16 11:48 09/09/16 15:25 09/09/16 16:44 09/09/16 20:37 Glucose (Fingerstick) 85mg/dL (70-99) 84mg/dL (70-99) 116mg/dL (70-99) Magnesium Level 0.8mg/dL (1.8-2.4) Test 09/10/16 04:55 09/10/16 07:39 Sodium Level 148mmol/L (136-145) Potassium Level 3.8mmol/L (3.5-5.1) Chloride Level 114mmol/L (98-107) Carbon Dioxide Level 24mmol/L (21-32) Anion Gap 10 (6-14) Blood Urea Nitrogen 8mg/dL (7-20) Creatinine 0.8mg/dL (0.6-1.0) Estimated GFR (Cockcroft-Gault) 69.0 BUN/Creatinine Ratio 10 (6-20) Glucose Level 76mg/dL (70-99) Calcium Level 6.2mg/dL (8.5-10.1) Ionized Calcium 0.88mmol/L (1.13-1.32) Magnesium Level 0.7mg/dL (1.8-2.4) Total Bilirubin 0.2mg/dL (0.2-1.0) Aspartate Amino Transf (AST/SGOT) 22U/L (15-37) Alanine Aminotransferase (ALT/SGPT) 13U/L (14-59) Alkaline Phosphatase 73U/L (46-116) Total Protein 5.4g/dL (6.4-8.2) Albumin 1.9g/dL (3.4-5.0) Albumin/Globulin Ratio 0.5 (1.0-1.7) Thyroid Stimulating Hormone (TSH) 0.221uIU/mL (0.358-3.74) Glucose (Fingerstick) 80mg/dL (70-99) NADJA GARZA MD Sep 10, 2016 08:36
[2016-09-10] MEDS: AZITHROMYCIN 250 MG TABLET PO SCH (09:00)
[2016-09-10] MEDS: ASPIRIN 325 MG TABLET PO SCH (09:00)
[2016-09-10] MEDS ORDERED: MAGNESIUM OXIDE 400 MG TABLET PO SCH (09:00)
[2016-09-10] MEDS: PANTOPRAZOLE 40 MG TABLET. PO SCH (09:01)
[2016-09-10] MEDS: MEMANTINE 5 MG TABLET. PO SCH (09:01)
[2016-09-10] MEDS: LISINOPRIL 20 MG TABLET PO SCH (09:01)
[2016-09-10] MEDS: CALCIUM CARBONATE 500 MG TABLET PO SCH ×2 (09:01→14:15)
[2016-09-10] MEDS: METFORMIN XR 500 MG TAB.ER.24H PO SCH (09:01)
[2016-09-10] MEDS: DONEPEZIL HCL 10 MG TABLET. PO SCH (09:01)
[2016-09-10] MEDS: IBUPROFEN 400 MG TABLET. PO SCH ×2 (09:01→14:15)
--- NOTE | 2016-09-10 09:08 | HP ---
ADMIT DATE: 09/06/2016 ATTENDING PHYSICIAN: Nadja Garza M.D. CHIEF COMPLAINT: Neck pain. HISTORY OF PRESENT ILLNESS: The patient is an 81-year-old female with a history of multiple medical problems, who was noted to have the onset of several days of body aches with neck pain and cough productive of greenish and white sputum. She did have some intermittent shortness of breath and generalized weakness. The pain in the neck became significantly worse, prompting her evaluation in the EMR. When she was being transferred to the hospital by EMS, she was noted to have an oxygen saturation of 88%. On their evaluation initially, there was no definite fevers noted. The family does note that the patient has been coughing somewhat when she tries to eat or drink certain foods, but she has had a cough overall. PAST MEDICAL HISTORY: Significant for coronary artery disease, hypertension, peripheral arterial disease, hyperlipidemia, Alzheimer's dementia, CVA, osteoarthritis, hypothyroidism, carotid artery hypersensitivity, depression, essential tremor, diabetes mellitus type 2, and anxiety. PAST SURGICAL HISTORY: Includes 4-vessel bypass in 2011, bilateral knee replacements, hysterectomy, breast surgery for tumor removal, cholecystectomy, sternal wire removal in 2013, and permanent pacemaker implantation in 2013. MEDICATIONS: At the time of admission, include Xanax 0.25 mg p.o. daily at bedtime and p.r.n. during the day, vitamin C 500 mg p.o. daily, aspirin 325 mg p.o. daily, Lipitor 40 mg p.o. daily, BuSpar 5 mg p.o. b.i.d. p.r.n. anxiety, Aricept 10 mg p.o. daily, [place] 5/325 one p.o. t.i.d. p.r.n., lisinopril 20 mg p.o. daily, Namenda 5 mg p.o. daily, metformin 1000 mg p.o. b.i.d. - that is the extended-release metformin, omeprazole 20 mg p.o. daily, Effexor extended release 37.5 mg p.o. daily. ALLERGIES TO MEDICATIONS: PENICILLIN. SOCIAL HISTORY: Her just , approximately 2-3 weeks ago. She is having significant grief with that, she lives at home, and her grandchildren take care of her. She continues to smoke up to a half a pack a day. She denies any significant alcohol or substance abuse. FAMILY HISTORY: Noncontributory. REVIEW OF SYSTEMS: The patient denies any fevers. She has had upper respiratory congestion. She has been having some occasional cough with eating, but no definite sensation of food catching up. She has had a decreased appetite overall. She has had some emesis and diarrhea. She feels generally achy all over and maybe a little bit short of breath, but not anything significant. She denies any chest pain or palpitations. She has not had any significant increased lower extremity edema. She has been urinating without difficulty. There is no blood in her urine or stool. She denies any focal paresthesias or weakness, but feels generally weak all over, especially in the bilateral legs. She is depressed and grieving her 's . PHYSICAL EXAMINATION: VITAL SIGNS: At the time of admission, temperature 97.7, pulse 108, respiratory rate 28, blood pressure 164/67, and O2 sat 99% on 2 liters. GENERAL: The patient is alert. She is able to answer questions appropriately. She is lying in bed. She seems to be in some discomfort with any movement, particularly with turning her head. HEENT: The pupils are equal and round. The extraocular motions are intact. The sclerae are anicteric. She is not photophobic. The oropharynx is moist. NECK: Without JVD. There is no bruit. CHEST: Clear to auscultation with decreased air movement throughout. CARDIOVASCULAR: Heart has a regular rate and rhythm without murmurs. ABDOMEN: Soft and nondistended. There is minimal diffuse tenderness to palpation. EXTREMITIES: Trace of edema bilaterally in the lower legs. She is diffusely tender to palpation throughout the arms and legs and back and neck. Kernig and Brudzinski are negative. NEUROLOGIC: Motor strength is intact throughout. LABORATORY DATA: At the time of admission, WBC 11.6, hemoglobin 11.7, hematocrit 36.6, and platelets 282. UA shows specific gravity of greater than 1.030 with 30 protein, trace ketones, occasional WBCs, and occasional epithelial cells. Influenza A and B was negative. Sodium 143, potassium 4.0, chloride 106, CO2 25, BUN 23, and creatinine 1.0. Glucose 132. Lactic acid 1.5, calcium was 6.9, and albumin was 2.6. With correction, the calcium is 8.3. LFTs are within normal limits. Troponin was 0.02. Chest x-ray did not show any acute abnormality. CT of the head showed moderate chronic small-vessel ischemic changes and atrophy similar to prior studies without any acute abnormality. IMPRESSION: 1. Viral syndrome with dehydration. 2. Myalgias secondary to the above. 3. Dehydration. 4. Bronchitis. 5. Diabetes mellitus type 2. 6. Hypertension. 7. Dementia. 8. Grief secondary to the loss of her a couple of weeks ago. 9. Anxiety. PLAN: The patient is admitted. She is given IV fluids. We will see how she responds to that. She was initially started on antibiotics in the Emergency Room for concern about possible meningitis, but with her minimally elevated white blood cell count and symptoms going on for several days without a fever, it would be highly unlikely for her to have a bacterial meningitis, so we will discontinue the antibiotics for that. We will use azithromycin for possible bronchitis since she is having some purulent sputum. We will see how she does with the IV fluids. We will need to get physical therapy involved. We will continue her other home medications and use sliding scale insulin as needed for blood sugars. NADJA GARZA MD DR: JOIE/marcelo JOB#: [id number] / [id number]
[2016-09-10 11:11] VITALS: BP 137/58
== END 2016-09-10 15:24 | DRG 865 ==
LOC: ER 21:50 → 6 SOUTH 09-06 00:43
PROVIDERS: ADMIT Family Medicine; ATTEND Family Medicine
DX: B34.9 Viral infection, unspecified (principal); E43 Unspecified severe protein-calorie malnutrition; E87.0 Hyperosmolality and hypernatremia; J20.9 Acute bronchitis, unspecified; D64.9 Anemia, unspecified; E86.0 Dehydration; E03.9 Hypothyroidism, unspecified; E11.9 Type 2 diabetes mellitus without complications; E78.5 Hyperlipidemia, unspecified; E83.42 Hypomagnesemia; E83.51 Hypocalcemia; E87.6 Hypokalemia; Z96.653 Presence of artificial knee joint, bilateral; M19.90 Unspecified osteoarthritis, unspecified site; E88.09 Other disorders of plasma-protein metabolism, not elsewhere classified; F02.80 Dementia in other diseases classified elsewhere, unspecified severity, without behavioral disturbance, psychotic disturbance, mood disturbance, and anxiety; F17.210 Nicotine dependence, cigarettes, uncomplicated; F32.9 Major depressive disorder, single episode, unspecified; F41.9 Anxiety disorder, unspecified; G30.9 Alzheimer's disease, unspecified; G89.29 Other chronic pain; I10 Essential (primary) hypertension; I25.10 Atherosclerotic heart disease of native coronary artery without angina pectoris; I73.9 Peripheral vascular disease, unspecified; R32 Unspecified urinary incontinence; Z86.73 Personal history of transient ischemic attack (TIA), and cerebral infarction without residual deficits; Z95.0 Presence of cardiac pacemaker; Z95.1 Presence of aortocoronary bypass graft; Z90.49 Acquired absence of other specified parts of digestive tract; Z90.710 Acquired absence of both cervix and uterus; Z79.899 Other long term (current) drug therapy; Z79.82 Long term (current) use of aspirin; Z88.0 Allergy status to penicillin
CPT/HCPCS: 36415; 51701; 70450; 71010; 74000; 80048; 80053; 81001; 82306; 82310; 82947; 83605; 83735; 83970; 84100; 84443; 84484; 85018; 85027; 87804; 93005; 96374; 96375; 96376; J0696; J2405; J3010; J3360; J3370; J7030; J7040; J7060; Q0144; 92610; 97116; 97530; 97535; 99285-25

== ENCOUNTER → 2017-06-12 | Outpatient (CLI) | payer MEDICARE ==
[~2017-06-12] MED LIST changes: +ALPR0.25 PO; +ASCO500T2 PO; -ASPI325T4 PO; +ASPI325T8 PO; +BUSP5TAB PO; -DONE10TA34 PO; +DONE10TA61 PO; -ESCI20TA10 PO; -HYDR-2666 PO; +HYDR-2758 PO; +LEXAPRO20 MG PO; +METF-620 PO; +METF100010 PO; -METF10002 PO; +VENL37.57 PO
--- NOTE | 2017-06-13 13:33 | CARD ---
APPROVED REPORT EXAM: Two-dimensional and M-mode echocardiogram with Doppler and color Doppler. Other Information Quality : Fair INDICATION Cardiac Disease: CAD Surgery/Intervention Pacemaker: CABD DIMENSIONS Left Atrium(2D)3.7 (1.6-4.0cm)IVSd1.1 (0.7-1.1cm) Aortic Root(2D)2.3 (2.0-3.7cm)LVDd3.7 (3.9-5.9cm) LVOT Diameter2.0 (1.8-2.4cm)PWd0.9 (0.7-1.1cm) LVDs2.9 (2.5-4.0cm)FS (%) 27.0 % LVEF(%)55.0 (>50%) Aortic Valve LVOT Peak Felix.64.6cm/s Tricuspid Valve TR P. [id number] Peak Gr.29mmHg LEFT VENTRICLE The left ventricle is normal size. There is normal left ventricular wall thickness. The left ventricu lar systolic function is normal and the ejection fraction is within normal range. The Ejection Fracti on is 55-60%. There is normal LV segmental wall motion. Apical motion consistent with pacemaker activ ation. Tissue Doppler imaging reveals mild left ventricular diastolic dysfunction. RIGHT VENTRICLE The right ventricle is normal size. The right ventricular systolic function is normal. ATRIA The left atrium size is normal. The right atrium size is normal. The interatrial septum is intact wit h no evidence for an atrial septal defect or patent foramen ovale as noted on 2-D or Doppler imaging. AORTIC VALVE The aortic valve is normal in structure and function. Doppler and Color Flow revealed trace aortic re gurgitation. There is no significant aortic valvular stenosis. MITRAL VALVE The mitral valve is mildly thickened. Mitral annular calcification is mild to moderate. There is no e vidence of mitral valve prolapse. There is no mitral valve stenosis. Doppler and Color-flow revealed trace mitral regurgitation. TRICUSPID VALVE The tricuspid valve is normal in structure and function. Doppler and Color Flow revealed mild tricusp id regurgitation. PULMONIC VALVE The pulmonic valve is not well visualized. Doppler and Color Flow revealed no pulmonic valvular regur gitation. There is no pulmonic valvular stenosis. GREAT VESSELS The aortic root is normal in size. The ascending aorta is normal in size. The IVC is normal in size a nd collapses >50% with inspiration. PERICARDIAL EFFUSION There is no pleural effusion. There is no evidence of significant pericardial effusion. Critical Notification Critical Value: No <Conclusion> The left ventricular systolic function is normal and the ejection fraction is within normal range. Th e Ejection Fraction is 55-60%. There is normal LV segmental wall motion.
== END | disposition home or self-care (01) ==
LOC: ECHO 12:46
PROVIDERS: ATTEND Internal Medicine Cardiovascular Disease
DX: I25.10 Atherosclerotic heart disease of native coronary artery without angina pectoris (principal); I07.1 Rheumatic tricuspid insufficiency
CPT/HCPCS: 93306

== ENCOUNTER 2017-06-25 06:40 | Emergency (ER) | payer BC ==
[2017-06-25 07:15] LABS: ADD MAN DIFF? NO
[2017-06-25 07:26] LABS: BASO # 0.1 x10^3/uL (0.0-0.2); BASO % 2 % (0-3); EOS % 4 % (0-3); HEMATOCRIT 33.2 % (36.0-47.0); HEMOGLOBIN 10.4 g/dL (12.0-15.5); LYMPH # 1.8 x10^3/uL (1.0-4.8); LYMPH % 30 % (24-48); MEAN CORPUSCULAR HEMOGLOBIN 26 pg (25-35); MEAN CORPUSCULAR HGB CONC 31 g/dL (31-37); MEAN CORPUSCULAR VOLUME 83 fL (79-100); MONO % 9 % (0-9); NEUT % 54 % (31-73); PLATELET COUNT 277 x10^3/uL (140-400); RED BLOOD COUNT 3.98 x10^6/uL (3.50-5.40); RED CELL DISTRIBUTION WIDTH 17.5 % (11.5-14.5); WHITE BLOOD COUNT 5.9 x10^3/uL (4.0-11.0)
[2017-06-25 07:35] LABS: ANION GAP 8 (6-14); BLOOD UREA NITROGEN 22 mg/dL (7-20); BUN/CREATININE RATIO 17 (6-20); CALCIUM 9.3 mg/dL (8.5-10.1); CARBON DIOXIDE 29 mmol/L (21-32); CHLORIDE 104 mmol/L (98-107); CREATININE 1.3 mg/dL (0.6-1.0); GFR 39.4; GLUCOSE 103 mg/dL (70-99); POTASSIUM 4.6 mmol/L (3.5-5.1); SODIUM 141 mmol/L (136-145)
[2017-06-25 07:41] LABS: ALBUMIN 3.4 g/dL (3.4-5.0); ALBUMIN/GLOBULIN RATIO 0.8 (1.0-1.7); ALK PHOS 91 U/L (46-116); ALT (SGPT) 10 U/L (14-59); AST (SGOT) 14 U/L (15-37); TOTAL BILIRUBIN 0.2 mg/dL (0.2-1.0); TOTAL PROTEIN 7.9 g/dL (6.4-8.2)
[2017-06-25] MEDS: HYDROcodone/APAP 5/325MG 1 TAB TABLET PO (08:11)
[2017-06-25 08:12] LABS: BILIRUBIN,URINE NEGATIVE (NEG); GLUCOSE,URINE NEGATIVE (NEG); NITRITE,URINE NEGATIVE (NEG); PH,URINE 6.5; PROTEIN,URINE NEGATIVE (NEG-TRACE); UROBILINOGEN,URINE 0.2 mg/dL (0.2 mg/dL)
[2017-06-25 08:27] LABS: BACTERIA,URINE 0 /HPF (0-FEW); RBC,URINE 0 /HPF (0-2); SQUAMOUS EPITHELIAL CELL,UR FEW /LPF; WBC,URINE 0 /HPF (0-4)
== END 2017-06-25 09:32 | disposition home or self-care (01) ==
LOC: ER 06:40
DX: S09.90XA Unspecified injury of head, initial encounter (principal); I10 Essential (primary) hypertension; E11.9 Type 2 diabetes mellitus without complications; I25.10 Atherosclerotic heart disease of native coronary artery without angina pectoris; F03.90 Unspecified dementia, unspecified severity, without behavioral disturbance, psychotic disturbance, mood disturbance, and anxiety; Z86.73 Personal history of transient ischemic attack (TIA), and cerebral infarction without residual deficits; Z95.0 Presence of cardiac pacemaker; I25.2 Old myocardial infarction; Z90.710 Acquired absence of both cervix and uterus; Z88.0 Allergy status to penicillin; W18.39XA Other fall on same level, initial encounter; Y93.89 Activity, other specified; Y99.8 Other external cause status; Y92.89 Other specified places as the place of occurrence of the external cause
CPT/HCPCS: 36415; 70450; 72125; 80053; 81001; 85025; 93005; 99285-25